=== PATIENT | female | born 1930 | race Caucasian/White ===

== ENCOUNTER → 2021-04-03 | Outpatient (CLI) | payer OTHER ==
[~2021-04-03] MED LIST: CATAPRES 0.1MG0.1 MG PO; EFFER-K 10 MEQ10 MEQ PO; FERROUS SULFAT325 M2 PO; LASIX40 MG PO; LIPITOR TAB 2020 MG PO; METOPROLOL TART50 MG PO; MULTIVITAMINS1 EAC1 PO; NEXIUM40 MG PO; RESTORIL15 MG PO; TIKOSYN250 MCG PO; VANCOCIN 125 M125 MG PO; VITAMIN B-1000 MCG/M IM; XARELTO20 MG PO; ZOFRAN4 MG PO
== END ==
LOC: LBRF 11:29
DX: A04.72 Enterocolitis due to Clostridium difficile, not specified as recurrent (principal)
CPT/HCPCS: 87045; 87046; 89055